=== PATIENT | female | born 1970 | race Caucasian/White ===

== ENCOUNTER 2018-03-19 00:09 | Emergency (ER) | payer OTHER ==
[2018-03-19] MEDS ORDERED: HYDROcodone/APAP 7.5-325MG 1 EACH TAB PO ONE (02:04)
[2018-03-19] MEDS ORDERED: ACET/COD 300 MG/30 MG STARTER PACK 6 TAB BTL PO STA (02:04)
[2018-03-19] MEDS ORDERED: CLINDAMYCIN 150 MG CAP PO STA (02:05)
--- NOTE | 2018-03-19 02:11 | ED ---
ENT HPI - General Chief complaint: Dental/Oral Stated complaint: Dental Swelling/Pain Source: patient Mode of arrival: ambulatory Limitations: no limitations - History of Present Illness Initial comments: 47 or female with past medical history of previous dental abscesses present today for chief complaint of right lower facial swelling And dental pain. Patient states that she has had multiple dental abscesses the past with the last being over 2 months ago. Patient states that she has had a cracked teeth in the right lower aspect of mouth. Patient states that last night she noticed pain, this evening she began noticing swelling concerning for infection. Patient presents today for evaluation. Patient denies a swelling below the angle of the mandible or neck. Patient has a difficulty breathing or swallowing. Patient denies any swelling of the tongue or below the tongue. Patient denies any fever, chills, night sweats or malaise. Patient states she feels well but think she needs antibiotics and extraction of her tooth. Remainder of ROS negative, patient denies any valvular disease, shortness of breath, chest pain, back pain, abdominal pain, nausea or vomiting, numbness or tingling, dysuria or hematuria, constipation or diarrhea, headaches or visual changes, or any other complaints. Upon arrival patient blood pressure mildly elevated, patient afebrile well-appearing nontoxic. - Related Data Previous Rx's Medication Instructions Recorded Clindamycin [Cleocin] 450 mg PO Q8H 7 Days #63 capsule 03/19/18 Allergies Allergy/AdvReac Type Severity Reaction Status Date / Time Penicillins Allergy Nausea & Verified 03/19/18 00:39 Vomiting Review of Systems ROS Statement: Those systems with pertinent positive or pertinent negative responses have been documented in the HPI. ROS Other: All systems not noted in ROS Statement are negative. Constitutional: Denies: fever, chills, night sweats ENT: Reports: dental pain. Denies: ear pain, throat pain, hearing loss Respiratory: Denies: cough, dyspnea, wheezes, hemoptysis, stridor Cardiovascular: Denies: chest pain, palpitations Endocrine: Denies: fatigue Gastrointestinal: Denies: abdominal pain, nausea, vomiting, diarrhea, constipation, hematemesis, melena, hematochezia Genitourinary: Denies: urgency, dysuria, frequency, hematuria Musculoskeletal: Denies: back pain Neurological: Denies: headache, weakness, numbness, paresthesias, confusion, abnormal gait Past Medical History Past Medical History: No Reported History Past Surgical History: Tubal Ligation General Exam - General Exam Comments Initial Comments: General: The patient is awake and alert, in no distress, and does not appear acutely ill. Eye: Pupils are equal, round and reactive to light, extra-ocular movements are intact. No nystagmus. There is normal conjunctiva bilaterally. No signs of icterus. Ears, nose, mouth and throat: There are moist mucous membranes and no oral lesions. Upon inspection of the oral cavity there is no fluctuant abscess. Patient does have pain to palpation of teeth number 29 & 30. Both teeth are painful to percussion, no noted tracking. Mild right sided facial swelling noted, this does not extend below the angle of the mandible. No swelling below the tongue. No palpable anterior cervical adenopathy. Normal inspection of the external auditory canals bilaterally however limited view of the tympanic membrane due to cerumen. Neck: The neck is supple, there is no tenderness or JVD. Cardiovascular: There is a regular rate and rhythm. No murmur, rub or gallop is appreciated. Respiratory: Lungs are clear to auscultation, respirations are non-labored, breath sounds are equal. No wheezes, stridor, rales, or rhonchi. Musculoskeletal: Normal ROM, no tenderness. Strength 5/5. Sensation intact. Pulses equal bilaterally 2+. Neurological: A&O x 3. CN II-XII intact, There are no obvious motor or sensory deficits. Coordination appears grossly intact. Speech is normal. Skin: Skin is warm and dry and no rashes or lesions are noted. Psychiatric: Cooperative, appropriate mood & affect, normal judgment. Limitations: no limitations Course Vital Signs 03/19/18 03/19/18 00:35 02:30 Temperature 98.1 F 97 F L Pulse Rate 56 L 59 L Respiratory 16 18 Rate Blood Pressure 142/82 144/99 O2 Sat by Pulse 99 99 Oximetry Medical Decision Making - Medical Decision Making Well-appearing 47-year-old male complains of dental pain. History of poor dentition and previous abscess. No fluctuant abscess however pain to percussion concern for periapical abscess. Patient be started on clindamycin given penicillin ALLERGY. In addition patient was given pain medication in the emergency department, patient states she has a ride home for dental pain management. Patient is afebrile no signs of toxicity. No murmurs on cardiac examination. This I do feel patient is stable for discharge with follow-up with oral surgery or dentist for tooth extraction. Patient is agreeable plan, denies crutches at this time. Patient is agreeable discharge, all return parameters were discussed at length the patient prior to patient's discharge. All questions were answered to the best mobility. Case discussed with who agreed [facility] impression and plan. Pt elevated BP addressed, she is to f/u with primary care provider for further evaluation, ROS (-). Disposition Clinical Impression: Periapical abscess Disposition: HOME SELF-CARE Condition: Good Instructions: Dental Abscess (ED) Additional Instructions: Please use medication as discussed, no driving operating machinery or working while under influence of tylenol #3. Please follow-up with dentist or oral surgeon in next 2-3 days for tooth extraction. Please return to emergency room if the symptoms increase or worsen or for any other concerns. Prescriptions: Clindamycin [Cleocin] 450 mg PO Q8H 7 Days #63 capsule Is patient prescribed a controlled substance at d/c from ED?: No Referrals: None,Stated [Primary Care Provider] - 1-2 days Michael Bess DDS [STAFF PHYSICIAN] - 1-2 days Time of Disposition: 02:10
[2018-03-19 02:31] VITALS: BP 144/99; PULSE 59; RESP 18; TEMP 97
== END 2018-03-19 02:30 | disposition home or self-care (01) ==
LOC: EC 00:09
DX: K04.7 Periapical abscess without sinus (principal); R06.00 Dyspnea, unspecified; R13.10 Dysphagia, unspecified; Z88.0 Allergy status to penicillin
CPT/HCPCS: 99283